=== PATIENT | male | born 1965 | race Caucasian/White ===

== ENCOUNTER 2018-08-23 18:48 | Inpatient (IN) | payer SELFPAY ==
[2018-08-23] MEDS ORDERED: PROPOFOL/EMULSION 1,000 MG/100 ML BOTTLE IV ONE (18:54)
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
[2018-08-23 19:07] LABS: PLATELET COUNT 251 10^3/uL (150-400)
--- NOTE | 2018-08-23 19:13 | PDCONSULT ---
[place] Note: #[id number] Mariano Lebron MD, FACS
[2018-08-23 19:27] LABS: INR 0.87 (0.83-1.16); PROTIME(PATIENT) 12.1 SEC (12.0-15.0)
[2018-08-23] MEDS ORDERED: LORazepam 2 MG/ML INJ IVP PRN ×2 (19:44→19:51)
[2018-08-23] MEDS ORDERED: NALOXONE HCL 0.4 MG/ML INJ IVP PRN (19:44)
[2018-08-23] MEDS ORDERED: FLUMAZENIL 0.5 MG/5 ML MDV IVP PRN (19:51)
[2018-08-23] MEDS ORDERED: PROPOFOL/EMULSION 100 ML IV SCH (20:30)
[2018-08-23] MEDS ORDERED: ROCURONIUM 100 MG/10 ML VIAL ONE (20:43)
[2018-08-23] MEDS ORDERED: ETOMIDATE 40 MG/20 ML INJ ONE (20:43)
[2018-08-23] MEDS ORDERED: SUCCINYLCHOLINE CHLORIDE 200 MG/10 ML SYR IVP ONE (20:44)
[2018-08-23] MEDS ORDERED: KETAMINE 200 MG/20 ML VIAL ONE (20:44)
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
[2018-08-23] MEDS ORDERED: THIAMINE HCL 500 MG in NS 100 ML IV SCH (21:00)
--- NOTE | 2018-08-23 21:43 | CPEKG ---
Test Reason : OPEN Blood Pressure : / mmHG Vent. Rate : 103 BPM Atrial Rate : 103 BPM P-R Int : 183 ms QRS Dur : 099 ms QT Int : 341 ms P-R-T Axes : 044 -38 016 degrees QTc Int : 447 ms Sinus tachycardia Left axis deviation Confirmed by Tushar Roberts ([id number]) on 08/23/2018 9:43:07 PM Referred By: Confirmed By:Tushar Roberts
[2018-08-23] MEDS: FAMOTIDINE 20 MG/NACL 50 ML IV SCH (21:53)
[2018-08-23] MEDS ORDERED: NS 1,000 ML IV ONE (22:30)
--- NOTE | 2018-08-23 23:59 | SOAPPROG ---
Downtime Inpatient MD Late Entry SOAP Note: Axel was hypotensive on Propofol. After discontinuing Propofol, blood pressure returned to normal, but patient became agitated. He is now breathing spontaneously on CPAP, opens his eyes to command and is able to answer yes/no questions. Lungs are clear but diminished bilaterally without rales or ronchi. Tox screen was negative. He was extubated without incident and is breathing without distress. He remains tachycardic HR 100 BP 128/68 Will continue CIWA protocol with IV Ativan as needed. Will request hospitalist consult Fran Lebron MD, FACS
[2018-08-24] MEDS: CHLORHEXIDINE GLUCONATE 15 ML UDL PO SCH ×2 (00:26→09:26)
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
[2018-08-24] MEDS ORDERED: ENOXAPARIN 40 MG/0.4 ML SYR SC SCH (09:00)
[2018-08-24 09:25] VITALS: BP 140/99
[2018-08-24] MEDS: FAMOTIDINE 20 MG/NACL 50 ML IV SCH (09:26)
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
[2018-08-26] MEDS ORDERED: THIAMINE HCL 100 MG TAB PO SCH (09:00)
== END 2018-08-24 12:15 | disposition home or self-care (01) | DRG 923 ==
LOC: OBSVTOIN 19:58 → F2N 20:48
PROVIDERS: ADMIT Surgery; ATTEND Surgery
DX: T68.XXXA Hypothermia, initial encounter (principal); F10.129 Alcohol abuse with intoxication, unspecified; Y90.8 Blood alcohol level of 240 mg/100 ml or more; X31.XXXA Exposure to excessive natural cold, initial encounter; V48.0XXA Car driver injured in noncollision transport accident in nontraffic accident, initial encounter
CPT/HCPCS: 80305; 82435-PO; 82565-PO; 82947-PO; 84132-PO; 84295-PO; 84520-PO; 85014-PO; 96374; G0480; J0330; J2060; J2704; J3411; L0120